=== PATIENT | male | born 1990 | race Caucasian/White ===

== ENCOUNTER 2016-12-13 16:23 | Emergency (ER) | payer MEDICAID ==
--- NOTE | 2016-12-13 16:46 | ED Physician Chart ---
Chief Complaint/HPI - Patient Information Date Seen:: 12/13/16 Time Seen:: 16:37 Chief Complaint:: mult complaints History of Present Illness:: pt is homeless. [place]...has family in town. he has been on [address] assisted. hx of ivda x 10 yrs. says he was goign through the trash 2 days ago and poked his finger w a diabetic syringe that was in the trash. he cant recall which finger it was that he struck. he has a known hx of hepatitis c which he has never had txd. also he is concerned that he might have a fungal infection of his toes. he is currently still a ivda. Allergies:: Allergies Allergy/AdvReac Type Severity Reaction Status Date / Time No Known Allergies Allergy Verified 02/20/16 12:16 Historian:: Patient Review of Systems - Review of Systems General/Constitutional: No fever, No chills, No weight loss, No weakness, No diaphoresis, No edema, No loss of appetite Skin: No skin lesions, No rash, No bruising, Other (fungal infection of feet?) Head: No headache, No light-headedness Eyes: No loss of vision, No pain, No diplopia ENT: No earache, No nasal drainage, No sore throat, No tinnitus Neck: No neck pain, No swelling, No thyromegaly, No stiffness, No mass noted Cardio Vascular: No chest pain, No palpitations, No PND, No orthopnea, No edema Pulmonary: No SOB, No cough, No sputum, No wheezing GI: No nausea, No vomiting, No diarrhea, No pain, No melena, No hematochezia, No constipation, No hematemesis G/U: No dysuria, No frequency, No hematuria Musculoskeletal: No bone or joint pain, No back pain, No muscle pain Endocrine: No polyuria, No polydipsia Psychiatric: No prior psych history, No depression, No anxiety, No suicidal ideation Hematopoietic: No bruising, No lymphadenopathy Allergic/Immuno: No urticaria, No angioedema Neurological: No syncope, No focal symptoms, No weakness, No paresthesia, No headache, No seizure, No dizziness, No confusion, No vertigo Past Medical History - Past Medical History Past Medical History: Other (ivda, hep c) Social History: Illicit Drug Use, Homeless Medication: None Family Medical History - Family Member Mother History Unknown: Yes Ethnicity: Non- Hx Family Cancer: Yes Physical Exam - Physical Examination General/Constitutional: Awake, Well-developed, well-nourished, Alert, No distress, GCS 15, Non-toxic appearing, Ambulatory Other Gen/Cons comments:: thin man in nad. wn/wh. fingers show no puncture and no infection. toes have no onchomycosis. no cracked skin between digits. pt claims is itchy. Head: Atraumatic Eyes: Lids, conjuctiva normal, PERRL, EOMI Skin: Nl inspection, No rash, No skin lesions, No ecchymosis, Well hydrated, No lymphadenopathy ENMT: External ears, nose nl, Nasal exam nl, Lips, teeth, gums nl Neck: Nontender, Full ROM w/o pain, No JVD, No nuchal rigidity, No bruit, No mass, No stridor Respiratory: Nl effort/Exclusion, Clear to Auscultation, No Wheeze/Rhonchi/Rales Cardio Vascular: RRR, No murmur, gallop, rubs, NL S1 S2 GI: No tenderness/rebounding/guarding, No organomegaly, No hernia, Normal BS's, Nondistended, No mass/bruits, No McBurney tenderness : No CVA tenderness Extremities: No tenderness or effusion, Full ROM, normal strength in all extremities, No edema, Normal digits & nails Neuro/Psych: Alert/oriented, DTR's symmetric, Normal sensory exam, Normal motor strength, Judgement/insight normal, Mood normal, Normal gait, No focal deficits Misc: normal gait, Normal back, No paraspinal tenderness ED Septic Shock - . Is Septic Shock (SBP<90, OR Lactate>4 mmol\L) present?: No Reassessment (Disposition) - Reassessment Reassessment:: pt's story is dubious. if it is/was a dm syringe as he states then the risk should be low as that would be a narrow bore needle. hiv prophylaxis would not be indicated. baseline labs would be nice to confirm pts baseline risks... indicated but as there is no source pt info and no way of obtaining it and pt is not a employee ...labs today would not tell if/what he might have been exposed to. recommend pt follows up for hiv and hep testing through the health dept. Reassessment Condition:: Unchanged - Diagnosis Diagnosis:: 1 fungal infection toes 2 s/p low risk needle stick exposure. - Aftercare/Follow up Instructions Notes:: get hiv and hepatitis testing through the health department. see primary dr for further advice and treatemnt of your hepatitis. use lotion as rxd for fungal infection. - Patient Disposition Discharge/Transfer:: Home Condition at Disposition:: Unchanged
== END 2016-12-13 17:11 | disposition home or self-care (01) ==
LOC: ER 16:23
DX: B36.8 Other specified superficial mycoses (principal); Z91.041 Radiographic dye allergy status; Z91.013 Allergy to seafood; Z86.19 Personal history of other infectious and parasitic diseases; Z59.0 Homelessness
CPT/HCPCS: Z7502

== ENCOUNTER 2016-12-21 14:59 | Emergency (ER) | payer MEDICAID ==
--- NOTE | 2016-12-21 15:52 | ED Physician Chart ---
Chief Complaint/HPI - Patient Information Date Seen:: 12/21/16 Time Seen:: 15:25 Chief Complaint:: altered mental status History of Present Illness:: found sleeping on sidewalk. States he took only his prescribed dose of xanax today. Allergies:: Allergies Allergy/AdvReac Type Severity Reaction Status Date / Time fish derived Allergy Verified 12/21/16 15:17 iodine Allergy Verified 12/21/16 15:17 Vitals:: Vital Signs - 8 hr 12/21/16 12/21/16 15:05 15:37 Temp 97.6 F 98.3 F HR 69 88 RR 16 16 BP 101/64 110/70 O2 Sat % 97 97 Historian:: Patient Review:: Nurse's Note Reviewed Review of Systems - Review of Systems General/Constitutional: No fever, No chills Skin: No skin lesions Head: No headache Eyes: No loss of vision ENT: No earache Neck: No neck pain Cardio Vascular: No chest pain, No palpitations Pulmonary: No SOB GI: No nausea, No vomiting Musculoskeletal: No bone or joint pain Endocrine: No polyuria, No polydipsia Psychiatric: Other (ADHD) Hematopoietic: Bruising Allergic/Immuno: No urticaria Neurological: No syncope Past Medical History - Past Medical History Past Medical History: Other (ADHD) Family History: None Social History: Smoker Psychiatricy History: Other (ADHD) Medication: Reviewed Family Medical History - Family Member Mother History Unknown: Yes Ethnicity: Non- Hx Family Cancer: Yes Hx Family Congestive Heart Failure: No Hx Family Hypertension: No Hx Family Stroke: No Hx Family Diabetes: No Hx Family Dementia: No Hx Family AIDS: No Hx Family COPD: No Hx Family Hepatitis: No Hx Family Tuberculosis: No Physical Exam - Physical Examination General/Constitutional: Well-developed, well-nourished Other Gen/Cons comments:: somnolent but arousable Head: Atraumatic Eyes: Lids, conjuctiva normal, PERRL Other Skin comments:: crusted abrasions right knee ENMT: External ears, nose nl, TM canals nl, Nasal exam nl, Lips, teeth, gums nl , Oropharynx nl, Tonsils nl Neck: No nuchal rigidity Respiratory: Nl effort/Exclusion, Clear to Auscultation, No Wheeze/Rhonchi/Rales Cardio Vascular: RRR, No murmur, gallop, rubs GI: No tenderness/rebounding/guarding, No organomegaly, No hernia, Normal BS's : No CVA tenderness Neuro/Psych: No focal deficits Misc: No paraspinal tenderness Labs/Radiology/EKG Results - Lab Results Comments:: Laboratory Results - last 24 hr 12/21/16 12/21/16 15:59 15:59 WBC 4.1 L RBC 4.16 L Hgb 12.4 L Hct 36.6 L MCV 87.8 MCH 29.7 MCHC Differential 33.8 RDW 12.9 Plt Count 190 MPV 8.1 Neutrophils % 51.6 Lymphocytes % 32.9 Monocytes % 9.2 Eosinophils % 5.0 Basophils % 1.3 Sodium 134 L Potassium 3.3 L Chloride 102 Carbon Dioxide 30.7 Anion Gap 4.6 L BUN 16 Creatinine 0.7 Est GFR ( Amer) > 60.0 Est GFR (Non-Af Amer) > 60.0 BUN/Creatinine Ratio 22.9 Glucose 93 Calcium 8.8 Magnesium 2.2 Ethyl Alcohol < 10 Assessment - Assessment General Assessment: at 2350 sleeping but arousable ED Septic Shock - . Is Septic Shock (SBP<90, OR Lactate>4 mmol\L) present?: No - <6hrs of presentation: Vital Signs: Vital Signs - 8 hr 12/21/16 12/21/16 15:05 15:37 Temp 97.6 F 98.3 F HR 69 88 RR 16 16 BP 101/64 110/70 O2 Sat % 97 97 Reassessment (Disposition) - Reassessment Reassessment Condition:: Improved - Diagnosis Diagnosis:: hypokalemia; hyponatremia; anemia - Aftercare/Follow up Instructions Aftercare/Follow-Up Instructions:: Refer to Discharge Instructions - Patient Disposition Discharge/Transfer:: Home Condition at Disposition:: Stable, Improved
[2016-12-21 16:10] LABS: % BASOPHILS 1.3 % (0.0-2.0); % LYMPHOCYTES 32.9 % (20.0-50.0); % MONOCYTES 9.2 % (2.0-10.0); % NEUTROPHILS 51.6 % (40.0-80.0); HEMATOCRIT 36.6 % (39.0-49.0); HEMOGLOBIN 12.4 gm/dL (13.2-17.3); MEAN CELL VOLUME 87.8 fl (80-99); MEAN CORPUSCULAR HEMOGLOBIN 29.7 pg (26.0-30.0); MEAN CORPUSCULAR HGB CONC 33.8 pg (28.0-36.0); MEAN PLATELET VOLUME 8.1 fl; NEUTROPHILE ABSOLUTE 2.1 Th/cmm (1.8-8.0); PLATELET COUNT 190 Th/cmm (150-400); RED BLOOD COUNT 4.16 Mil/cmm (4.30-5.70); RED CELL DISTRIBUTION WIDTH 12.9 % (11.5-20.0); WHITE BLOOD COUNT 4.1 Th/cmm (4.8-10.8)
[2016-12-21 16:24] LABS: ANION GAP 4.6 (7.0-16.0); BUN - UREA NITROGEN 16 mg/dL (7-25); BUN/CREATININE RATIO 22.9; CALCIUM SERUM 8.8 mg/dL (8.6-10.3); CARBON DIOXIDE 30.7 mEq/L (21.0-31.0); CHLORIDE 102 mEq/L (98-107); CREATININE - SERUM 0.7 mg/dL (0.7-1.3); GLUCOSE 93 mg/dL (70-105); MAGNESIUM 2.2 mg/dL (1.9-2.7); POTASSIUM SERUM 3.3 mEq/L (3.5-5.1); SODIUM SERUM 134 mEq/L (136-145)
[2016-12-21] MEDS ORDERED: Potassium Chloride 20 mEq ER Tab PO ONE ×2 (18:49→19:19)
== END 2016-12-22 05:55 | disposition home or self-care (01) ==
LOC: ER 14:59
DX: E87.6 Hypokalemia (principal); E87.1 Hypo-osmolality and hyponatremia; D64.9 Anemia, unspecified; F17.200 Nicotine dependence, unspecified, uncomplicated; Z91.041 Radiographic dye allergy status; Z91.013 Allergy to seafood
CPT/HCPCS: 36415-UA; 80048-TC; 80320-TC; 83735-TC; 85025-TC; Z7502

== ENCOUNTER 2018-02-23 12:53 | Emergency (ER) | payer MEDICAID ==
[2018-02-23] MEDS ORDERED: Sodium Chloride 0.45% 1,000 ML IV ONE (13:10)
[2018-02-23 13:35] LABS: BASOPHILE ABSOLUTE 0.1 Th/cumm (0-0.2); EOSINOPHILE ABSOLUTE 0.4 Th/cmm (0.1-0.4); LYMPHOCYTE ABSOLUTE 1.6 Th/cmm (1.5-3.0); MEAN PLATELET VOLUME 8.2 fl; MONOCYTE ABSOLUTE 0.3 Th/cmm (0.3-1.0); NEUTROPHILE ABSOLUTE 1.6 Th/cmm (1.8-8.0)
[2018-02-23 13:37] LABS: % BASOPHILS 2.6 % (0.0-2.0); % EOSINOPHILS 9.4 % (0.0-5.0); % LYMPHOCYTES 40.5 % (20.0-50.0); % MONOCYTES 7.8 % (2.0-10.0); % NEUTROPHILS 39.7 % (40.0-80.0); HEMATOCRIT 35.5 % (41.0-60); MEAN CORPUSCULAR HEMOGLOBIN 29.5 pg (26.0-30.0); MEAN CORPUSCULAR HGB CONC 33.9 pg (28.0-36.0); PLATELET COUNT 246 Th/cmm (150-400); RED BLOOD COUNT 4.08 Mil/cmm (4.30-5.70); RED CELL DISTRIBUTION WIDTH 12.8 % (11.5-20.0)
[2018-02-23 13:38] LABS: INR 1.06 (0.5-1.4)
[2018-02-23 13:39] LABS: ALB/GLOB RATIO 1.4 (1.0-1.8); ALBUMIN 4.2 gm/dL (4.2-5.5); ALKALINE PHOSPHATASE 53 U/L (34-104); ANION GAP 9.8 (7.0-16.0); BILIRUBIN,TOTAL 0.5 mg/dL (0.3-1.0); BUN - UREA NITROGEN 16 mg/dL (7-25); CALCIUM SERUM 9.2 mg/dL (8.6-10.3); CARBON DIOXIDE 26.7 mEq/L (21.0-31.0); CHLORIDE 99 mEq/L (98-107); CREATININE - SERUM 0.8 mg/dL (0.7-1.3); GFR AFRICAN-AMERICAN > 60.0 ml/min (>90); GFR NON AFRICAN-AMERICAN > 60.0 ml/min; GLUCOSE 114 mg/dL (70-105); POTASSIUM SERUM 3.5 mEq/L (3.5-5.1); SGOT 34 U/L (13-39); SGPT/ALT 35 U/L (7-52); SODIUM SERUM 132 mEq/L (136-145); TOTAL PROTEIN,SERUM 7.2 gm/dL (6.0-8.3)
--- NOTE | 2018-02-23 13:51 | ED Physician Chart ---
ED Chief Complaint/HPI - Patient Information Date Seen:: 02/23/18 Time Seen:: 13:13 Chief Complaint:: LETHARGIC History of Present Illness:: THIS IS A 27 YO MALE FOUND DOWN ON THE SIDEWALK AND BIB EMS FOR AN EVALUATION. THE PATIENT STATES THAT HE IS ON XANAX FOR HIS PSYCH CONDITION. HE DENIES ALL OTHER PROBLEMS. Allergies:: Allergies Allergy/AdvReac Type Severity Reaction Status Date / Time fish derived Allergy Verified 12/21/16 15:17 iodine Allergy Verified 12/21/16 15:17 Vitals:: Vital Signs - 8 hr 02/23/18 02/23/18 13:05 13:42 Temp 97.7 F HR 92 78 RR 16 16 BP 110/66 95/56 O2 Sat % 97 Historian:: Patient, EMS Review:: Nurse's Note Reviewed ED Review of Systems - Review of Systems General/Constitutional: No fever, No chills, No weight loss, No weakness, No diaphoresis, No edema, No loss of appetite Skin: No skin lesions, No rash, No bruising Head: No headache, No light-headedness Eyes: No loss of vision, No pain, No diplopia ENT: No earache, No nasal drainage, No sore throat, No tinnitus Neck: No neck pain, No swelling, No thyromegaly, No stiffness, No mass noted Cardio Vascular: No chest pain, No palpitations, No PND, No orthopnea, No edema Pulmonary: No SOB, No cough, No sputum, No wheezing GI: No nausea, No vomiting, No diarrhea, No pain, No melena, No hematochezia, No constipation, No hematemesis G/U: No dysuria, No frequency, No hematuria Musculoskeletal: No bone or joint pain, No back pain, No muscle pain Endocrine: No polyuria, No polydipsia Psychiatric: No prior psych history, No depression, No anxiety, No suicidal ideation Hematopoietic: No bruising, No lymphadenopathy Allergic/Immuno: No urticaria, No angioedema Neurological: No syncope, No focal symptoms, No weakness, No paresthesia, No headache, No seizure, No dizziness, No confusion, No vertigo ED Past Medical History - Past Medical History Obtainable: Yes Past Medical History: Other (PSYCH DISORDER) Family Medical History - Family Member Mother History Unknown: Yes Ethnicity: Non- Hx Family Cancer: Yes Hx Family Congestive Heart Failure: No Hx Family Hypertension: No Hx Family Stroke: No Hx Family Diabetes: No Hx Family Dementia: No Hx Family AIDS: No Hx Family COPD: No Hx Family Hepatitis: No Hx Family Tuberculosis: No ED Physical Exam - Physical Examination General/Constitutional: Awake, Well-developed, well-nourished, Alert, No distress, GCS 15, Non-toxic appearing, Ambulatory Head: Atraumatic Eyes: Lids, conjuctiva normal, PERRL, EOMI Skin: Nl inspection, No rash, No skin lesions, No ecchymosis, Well hydrated, No lymphadenopathy ENMT: External ears, nose nl, Nasal exam nl, Lips, teeth, gums nl Neck: Nontender, Full ROM w/o pain, No JVD, No nuchal rigidity, No bruit, No mass, No stridor Respiratory: Nl effort/Exclusion, Clear to Auscultation, No Wheeze/Rhonchi/Rales Cardio Vascular: RRR, No murmur, gallop, rubs, NL S1 S2 GI: No tenderness/rebounding/guarding, No organomegaly, No hernia, Normal BS's, Nondistended, No mass/bruits, No McBurney tenderness : No CVA tenderness Extremities: No tenderness or effusion, Full ROM, normal strength in all extremities, No edema, Normal digits & nails Neuro/Psych: Alert/oriented, DTR's symmetric, Normal sensory exam, Normal motor strength, Judgement/insight normal, Mood normal, Normal gait, No focal deficits Misc: Normal back, No paraspinal tenderness ED Labs/Radiology/EKG Results - Lab Results Results: Abnormal Lab Results 02/23/18 02/23/18 02/23/18 13:10 13:10 13:10 WBC 4.0 L RBC 4.08 L Hgb 12.0 Hct 35.5 L MCV 87.0 MCH 29.5 MCHC Differential 33.9 RDW 12.8 Plt Count 246 MPV 8.2 Neutrophils % 39.7 L Lymphocytes % 40.5 Monocytes % 7.8 Eosinophils % 9.4 H Basophils % 2.6 H PT 11.0 INR 1.06 PTT (Actin FS) 30.2 Sodium 132 L Potassium 3.5 Chloride 99 Carbon Dioxide 26.7 Anion Gap 9.8 BUN 16 Creatinine 0.8 Est GFR ( Amer) > 60.0 Est GFR (Non-Af Amer) > 60.0 BUN/Creatinine Ratio 20.0 Glucose 114 H Calcium 9.2 Total Bilirubin 0.5 AST 34 ALT 35 Alkaline Phosphatase 53 Troponin I Total Protein 7.2 Albumin 4.2 Globulin 3.0 Albumin/Globulin Ratio 1.4 Ethyl Alcohol 02/23/18 02/23/18 13:10 13:10 WBC RBC Hgb Hct MCV MCH MCHC Differential RDW Plt Count MPV Neutrophils % Lymphocytes % Monocytes % Eosinophils % Basophils % PT INR PTT (Actin FS) Sodium Potassium Chloride Carbon Dioxide Anion Gap BUN Creatinine Est GFR ( Amer) Est GFR (Non-Af Amer) BUN/Creatinine Ratio Glucose Calcium Total Bilirubin AST ALT Alkaline Phosphatase Troponin I < 0.01 L Total Protein Albumin Globulin Albumin/Globulin Ratio Ethyl Alcohol < 10 ED Assessment - Assessment General Assessment: drug abuse benzodiapam ED Septic Shock - . Is Septic Shock (SBP<90, OR Lactate>4 mmol\L) present?: No - <6hrs of presentation: Vital Signs: Vital Signs - 8 hr 02/23/18 02/23/18 13:05 13:42 Temp 97.7 F HR 92 78 RR 16 16 BP 110/66 95/56 O2 Sat % 97 ED Reassessment (Disposition) - Reassessment Reassessment Condition:: Improved - Diagnosis Diagnosis:: drug abuse ( benzo) - Aftercare/Follow up Instructions Aftercare/Follow-Up Instructions:: Counseled pt regarding lab results/diagnosis & need follow up, Refer to Discharge Instructions, Counseled pt & family regarding lab results/diagnosis & need follow up - Patient Disposition Discharge/Transfer:: Home Condition at Disposition:: Improved ED Discharge Plan - Patient Disposition Admit/Discharge/Transfer: PT DISCHARGED HOME Instructions: Amphetamine Abuse, Polysubstance Abuse Additional Instructions: PLS FOLLOW UP WITH PCP IN 1-2 DAYS. RETURN TO ER IF SYMPTOMS WORSEN.
== END 2018-02-23 15:00 | disposition home or self-care (01) ==
LOC: ER 12:53
DX: F13.10 Sedative, hypnotic or anxiolytic abuse, uncomplicated (principal); Z91.041 Radiographic dye allergy status; Z91.013 Allergy to seafood
CPT/HCPCS: 36415-UA; 80053-TC; 80320-TC; 84484-TC; 85025-TC; 85610-TC; 85730-TC; 90779; 96374; J7030; Z7502

== ENCOUNTER 2018-02-28 17:03 | Emergency (ER) | payer MEDICAID ==
--- NOTE | 2018-02-28 17:55 | ED Physician Chart ---
ED Chief Complaint/HPI - Patient Information Date Seen:: 02/28/18 Time Seen:: 17:45 Chief Complaint:: rash History of Present Illness:: Patient's had a pruritic rash on his hands and legs for about 2 years. Patient is homeless. Allergies:: Allergies Allergy/AdvReac Type Severity Reaction Status Date / Time fish derived Allergy Verified 12/21/16 15:17 iodine Allergy Verified 12/21/16 15:17 Vitals:: Vital Signs - 8 hr 02/28/18 17:30 HR 80 RR 98 BP 142/90 O2 Sat % 99 Historian:: Patient Review:: Nurse's Note Reviewed ED Review of Systems - Review of Systems General/Constitutional: No fever, No chills, No weight loss, No weakness, No diaphoresis, No edema, No loss of appetite Skin: Rash, No bruising Head: No headache, No light-headedness Eyes: No loss of vision, No pain, No diplopia ENT: No earache, No nasal drainage, No sore throat, No tinnitus Neck: No neck pain, No swelling, No thyromegaly, No stiffness, No mass noted Cardio Vascular: No chest pain, No palpitations, No PND, No orthopnea, No edema Pulmonary: No SOB, No cough, No sputum, No wheezing GI: No nausea, No vomiting, No diarrhea, No pain, No melena, No hematochezia, No constipation, No hematemesis G/U: No dysuria, No frequency, No hematuria Musculoskeletal: No bone or joint pain, No back pain, No muscle pain Endocrine: No polyuria, No polydipsia Psychiatric: No prior psych history, No depression, No anxiety, No suicidal ideation Hematopoietic: No bruising, No lymphadenopathy Allergic/Immuno: No urticaria, No angioedema Neurological: No syncope, No focal symptoms, No weakness, No paresthesia, No headache, No seizure, No dizziness, No confusion, No vertigo ED Past Medical History - Past Medical History Past Medical History: Other (anxiety; fractured ribs) Family History: None Social History: Non Smoker, No Alcohol Surgical History: other (fractured mandible) Psychiatricy History: Other (anxiety) Medication: None Family Medical History - Family Member Mother History Unknown: Yes Ethnicity: Non- Hx Family Cancer: Yes Hx Family Congestive Heart Failure: No Hx Family Hypertension: No Hx Family Stroke: No Hx Family Diabetes: No Hx Family Dementia: No Hx Family AIDS: No Hx Family COPD: No Hx Family Hepatitis: No Hx Family Tuberculosis: No ED Physical Exam - Physical Examination General/Constitutional: Awake, Well-developed, well-nourished, Alert, No distress, GCS 15, Non-toxic appearing, Ambulatory Head: Atraumatic Eyes: Lids, conjuctiva normal, PERRL, EOMI Other Skin comments:: Dryness of the skin of the hands which patient keeps picking at; some excoriation rodriguez on the lower extremities ENMT: External ears, nose nl, Nasal exam nl, Lips, teeth, gums nl Neck: Nontender, Full ROM w/o pain, No JVD, No nuchal rigidity, No bruit, No mass, No stridor Respiratory: Nl effort/Exclusion, Clear to Auscultation, No Wheeze/Rhonchi/Rales Cardio Vascular: RRR, No murmur, gallop, rubs, NL S1 S2 GI: No tenderness/rebounding/guarding, No organomegaly, No hernia, Normal BS's, Nondistended, No mass/bruits, No McBurney tenderness : No CVA tenderness Extremities: No tenderness or effusion, Full ROM, normal strength in all extremities, No edema, Normal digits & nails Neuro/Psych: Alert/oriented, DTR's symmetric, Normal sensory exam, Normal motor strength, Judgement/insight normal, Mood normal, Normal gait, No focal deficits Misc: Normal back, No paraspinal tenderness ED Assessment - Assessment General Assessment: Patient more likely has insect bites from being homeless; scabies is less likely ED Septic Shock - . Is Septic Shock (SBP<90, OR Lactate>4 mmol\L) present?: No - <6hrs of presentation: Vital Signs: Vital Signs - 8 hr 02/28/18 17:30 HR 80 RR 98 BP 142/90 O2 Sat % 99 ED Reassessment (Disposition) - Reassessment Reassessment Condition:: Unchanged - Diagnosis Diagnosis:: Possible scabies; anxiety; insect bites - Aftercare/Follow up Instructions Aftercare/Follow-Up Instructions:: Refer to Discharge Instructions Medication Prescribed:: Prescription for Atarax 25 mg #20 to take 1 4 times a day Atarax 25 mg #20 to take 1 4 times a day prescribed
== END 2018-02-28 17:30 | disposition home or self-care (01) ==
LOC: ER 17:03
DX: R21 Rash and other nonspecific skin eruption (principal); F41.9 Anxiety disorder, unspecified; Z91.013 Allergy to seafood; Z91.041 Radiographic dye allergy status; Z59.0 Homelessness
CPT/HCPCS: Z7502